=== PATIENT | male | born 1980 | race Caucasian/White ===

== ENCOUNTER → 2021-01-07 12:20 | Outpatient (ROUT) | payer OTHER, SELFPAY ==
[2021-01-07 13:36] LABS: COVID19 -Nasal RAPID Negative (Negative)
== END ==
PROVIDERS: Family Provider Family Medicine; Visit Provider Family Medicine
DX: Z20.822 Contact with and (suspected) exposure to COVID-19 (principal)
CPT/HCPCS: 87635